=== PATIENT | female | born 1985 | race Caucasian/White ===

== ENCOUNTER → 2017-08-18 16:23 | Outpatient (CLI) | payer MEDICAID, SELFPAY | PROVIDERS: Family Provider Student in an Organized Health Care Education/Training Program; PCP Student in an Organized Health Care Education/Training Program; Visit Provider Physician Assistant Surgical | DX: J02.9 Acute pharyngitis, unspecified (principal) | CPT/HCPCS: 87081 ==

== ENCOUNTER → 2018-12-14 12:08 | Outpatient (CLI) | payer MEDICAID, SELFPAY ==
[2018-12-14 11:53] VITALS: BMI 17.6
[2018-12-14 13:55] LABS: HIV - WCH Non-Reactive (Nonreactive)
[2018-12-14 21:25] LABS: Chlamydia Trachomatis by PCR Negative (Negative); Neisserai gonorrhoeae by PCR Negative (Negative); Probe Check PASS; Sample Adequacy Control PASS; Specimen Processing Control PASS
[2018-12-16 12:07] LABS: HCV Quant. RNA PCR HCV Not Detected IU/mL (.)
[2018-12-16 12:53] LABS: HSV 1 IgG < 0.91 index (0.00-0.90); HSV 2 IgG < 0.91 index (0.00-0.90)
[2018-12-17 00:53] LABS: Rapid Plasmin Reagin (RPR) NONREACTIVE (NONREACTIVE)
== END ==
PROVIDERS: Family Provider Student in an Organized Health Care Education/Training Program; PCP Student in an Organized Health Care Education/Training Program; Referring Provider Nurse Practitioner Women's Health; Visit Provider Nurse Practitioner Women's Health
DX: Z11.3 Encounter for screening for infections with a predominantly sexual mode of transmission (principal)
CPT/HCPCS: 36415; 86592; 86695; 86696; 86703; 87491; 87522; 87591

== ENCOUNTER → 2019-01-05 14:23 | Outpatient (CLI) | payer MEDICAID, SELFPAY ==
[2019-01-04 10:47] VITALS: BMI 17.6
[2019-01-05 15:48] LABS: Color, Urine Yellow (Yellow); Glucose, Dipstick Normal (Normal); Ketone-Dipstick Negative (Negative); Leukocyte Esterase-Dipstick 500 /ul (Negative); Nitrite-Dipstick Positive (Negative); Occult Blood-Urine 25 /ul (Negative); Protein-Dipstick 30 mg/dl (Negative); Urine Bilirubin Dipstick Negative (Negative); Urine Clarity Cloudy (Clear); Urine Urobilinogen Normal (Normal)
[2019-01-05 16:44] LABS: Bacteria 4+ /hpf (None Seen); Mucous, Urine 4+ /hpf (<or=2+); Red Blood Cells-Urine 10-25 SEEN /hpf (0-5); Squamous Epithelial Cells - UA 5-10 SEEN /hpf (5-10); White Blood Cells 25-50 SEEN /hpf (0-5)
== END ==
PROVIDERS: Family Provider Student in an Organized Health Care Education/Training Program; PCP Student in an Organized Health Care Education/Training Program; Referring Provider Physician Assistant Surgical; Visit Provider Physician Assistant Surgical
DX: N30.01 Acute cystitis with hematuria (principal)
CPT/HCPCS: 81001; 87077; 87086; 87088; 87186

== ENCOUNTER → 2019-01-26 12:24 | Outpatient (CLI) | payer MEDICAID, SELFPAY ==
[2019-01-25 11:42] VITALS: BMI 17.6
--- NOTE | 2019-01-26 12:26 | US_ITS ---
STUDY: ULTRASOUND TRANSVAGINAL CLINICAL: Female, 33 years old. IUD TECHNIQUE: Transvaginal COMPARISON: None. FINDINGS: Normal uterine size measuring 8.3 x 4.4 x 2.9 cm in maximal craniocaudal dimension. There are no myometrial masses. An IUD is noted in place. Normal endometrial thickness measuring 3.7 mm. There are no endometrial masses, and there is no fluid in the endometrial cavity. Normal uterine cervix. Normal right ovary, measuring 2.2 x 2.7 x 1.5 cm. There is a 9 x 11 mm cyst. Nonvisualization of the left ovary. There is no free fluid in the pelvis. US/Transvaginal Non- IMPRESSION: IUD in place. Small right ovarian cyst. Electronically Signed: Alcides Matamoros DO at 21:53 EDT Tel [phone], Service support ,
--- NOTE | 2019-01-26 12:26 | US_ITS ---
STUDY: ULTRASOUND TRANSVAGINAL CLINICAL: Female, 33 years old. IUD TECHNIQUE: Transvaginal COMPARISON: None. FINDINGS: Normal uterine size measuring 8.3 x 4.4 x 2.9 cm in maximal craniocaudal dimension. There are no myometrial masses. An IUD is noted in place. Normal endometrial thickness measuring 3.7 mm. There are no endometrial masses, and there is no fluid in the endometrial cavity. Normal uterine cervix. Normal right ovary, measuring 2.2 x 2.7 x 1.5 cm. There is a 9 x 11 mm cyst. Nonvisualization of the left ovary. There is no free fluid in the pelvis. US/Pelvic (Non ) IMPRESSION: IUD in place. Small right ovarian cyst. Electronically Signed: Alcides Matamoros DO at 21:53 EDT Tel [phone], Service support ,
== END ==
PROVIDERS: Family Provider Student in an Organized Health Care Education/Training Program; PCP Student in an Organized Health Care Education/Training Program; Referring Provider Nurse Practitioner Women's Health; Visit Provider Nurse Practitioner Women's Health
DX: R10.2 Pelvic and perineal pain (principal); Z30.431 Encounter for routine checking of intrauterine contraceptive device
CPT/HCPCS: 76830; 76856; 93976

== ENCOUNTER → 2020-01-27 13:21 | Outpatient (CLI) | payer MEDICAID, SELFPAY ==
[2020-01-27 11:24] VITALS: BMI 21.0
[2020-01-31 07:44] LABS: Chlamydia By Nucleic Acid AMP Negative (Negative)
[2020-01-31 08:05] LABS: Gonococcus By Nucleic Acid AMP Negative (Negative)
== END ==
PROVIDERS: PCP Student in an Organized Health Care Education/Training Program; Referring Provider Obstetrics & Gynecology; Visit Provider Obstetrics & Gynecology
DX: N89.8 Other specified noninflammatory disorders of vagina (principal)
CPT/HCPCS: 87070; 87205; 87491; 87591

== ENCOUNTER → 2020-01-30 13:05 | Outpatient (CLI) | payer MEDICAID, SELFPAY ==
[2020-01-30 10:48] VITALS: BMI 17.6
[2020-01-30 13:34] LABS: Bacteria 0 SEEN /hpf (None Seen); Red Blood Cells-Urine 0 SEEN /hpf (0-5)
[2020-01-30 14:02] LABS: Color, Urine Yellow (Yellow); Glucose, Dipstick Normal (Normal); Ketone-Dipstick Negative (Negative); Leukocyte Esterase-Dipstick 25 /ul (Negative); Nitrite-Dipstick Negative (Negative); Occult Blood-Urine Negative /ul (Negative); Protein-Dipstick 15 mg/dl (Negative); Urine Bilirubin Dipstick Negative (Negative); Urine Clarity Clear (Clear); Urine Urobilinogen Normal (Normal)
[2020-01-30 14:07] LABS: Mucous, Urine 1+ /hpf (<or=2+); Squamous Epithelial Cells - UA 5-10 SEEN /hpf (5-10); White Blood Cells 0-5 SEEN /hpf (0-5)
== END ==
PROVIDERS: PCP Student in an Organized Health Care Education/Training Program; Referring Provider Physician Assistant; Visit Provider Physician Assistant
DX: R35.0 Frequency of micturition (principal)
CPT/HCPCS: 81001; 87086; 87088

== ENCOUNTER → 2020-03-06 12:33 | Outpatient (CLI) | payer MEDICAID, SELFPAY ==
[2020-01-30 10:48] VITALS: BMI 17.6
== END ==
PROVIDERS: PCP Student in an Organized Health Care Education/Training Program; Visit Provider Nurse Practitioner Women's Health
DX: N89.8 Other specified noninflammatory disorders of vagina (principal)
CPT/HCPCS: 87070; 87205

== ENCOUNTER 2022-06-26 17:51 | Emergency (ER) | payer MEDICAID, SELFPAY ==
[2022-06-26 17:52] VITALS: BP 111/63; PULSE 130; RESP 18; TEMP 36.6; O2SAT 99; BMI 23.4
--- NOTE | 2022-06-26 18:10 | EDS_ITS ---
HPI History of Present Illness Chief Complaint: Ear Problem Narrative Narrative: Patient is a 37-year-old female with no significant medical history presents to the emergency department with complaints of right ear pain, bleeding from the right ear. Patient was seen at urgent care today, diagnosed with right acute otitis media, placed on amoxicillin. The bleeding started after that. Patient also states to have some jaw pain, muffled hearing. She denies any fever or chills. Patient states that all 3 of her children were sick, she is the last 1 to become ill. [facility] Medical History (Updated 06/26/22 @ 18:18 by CHRISTOPHE Tsang) Acute otitis media, right Home Medications levonorgestrel 21 mcg/24 hours (8 yrs) 52 mg intrauterine device 1 insert intrauterine ONCE ##1 04/08/18 [Clinic Last Taken Unknown] levonorgestrel 21 mcg/24 hours (8 yrs) 52 mg intrauterine device (Mirena) 1 device intrauterine ONCE 01/27/20 [History Last Taken Unknown] amoxicillin 500 mg capsule 500 mg PO TID 10 days #30 caps 06/26/22 [Rx Last Taken Unknown] amoxicillin 875 mg-potassium clavulanate 125 mg tablet 1 tab PO BID #20 tabs 06/26/22 [Rx Last Taken Unknown] fluticasone propionate 50 mcg/actuation nasal spray,suspension (Flonase Allergy Relief) 1 spray intranasal BID #16 grams 06/26/22 [Rx Last Taken Unknown] Allergy/AdvReac Type Severity Reaction Status Date / Time triethanolamine Allergy Itching Verified 06/26/22 07:14 [From Cerumenex] Surgical History History of placement of ear tubes Hx of section Hx of tonsillectomy Social History Smoking Status: Never smoker alcohol intake: never substance use type: does not use what type of physical activity do you participate in: none seatbelt use: always do you feel safe at home: Yes ROS ROS ED ROS Narrative Constitutional: Negative for fever, chills, weight loss, weakness Eyes: Negative for vision loss, vision change, double vision ENT: Negative for any sore throat. Positive for ear pain, congestion, drainage from right ear Cardiovascular: Negative for any chest pain, tightness, palpitations Respiratory: Negative for any cough, sputum production, hemoptysis, dyspnea, dyspnea on exertion, orthopnea Gastrointestinal: Negative for any abdominal pain, nausea, vomiting, diarrhea, constipation, blood in stool, blood in vomit : Negative for any urinary frequency, dysuria, retention, blood in urine Muscle skeletal: Negative for any muscle joint pain, stiffness, myalgias, arthralgias, neck pain, back pain Neurological: Negative for any headache, syncope, numbness or tingling, dizziness Skin: Negative for any rashes, lumps, itching, abrasions, lacerations Psychiatric: Negative for any depression, anxiety, stress, suicidal ideation, homicidal ideation Hematologic: Negative for any easy bruising, excessive bruising, easy bleeding Allergies: Negative for any eczema, hives, rash EXAM Physical Exam Narrative Exam Narrative: Vital signs reviewed. HEET: Head normocephalic atraumatic, patient's left tympanic membrane is unremarkable, patient's right tympanic membrane does show perforation to the medial aspect, there is some serosanguineous with blood-tinged colored drainage. Muffled hearing.. Posterior pharynx is clear, moist mucous membranes. Nares clear bilaterally. Positive for periauricular lymphadenopathy. No pain along the mastoid. Neck: Supple with no lymphadenopathy or tenderness. No signs of meningismus, negative jolt sign. Cardiac: Regular rate and rhythm no murmurs gallops or rubs, equal peripheral pulses bilaterally. Respiratory: Lungs clear to auscultation bilaterally. No chest tenderness. Abdomen: Soft, nontender, nondistended. No abdominal bruit or pulsatile masses. No hepatosplenomegaly Extremities: No peripheral edema, no signs of gross trauma or deformity. Active full range of motion of all extremities. Neuro: Cranial nerves II through XII intact, no focal neurological deficits. Skin: Clean dry and intact with no rash, purpura, petechiae, vesicles or pustules. Backs/flank: No CVA tenderness, no midline spinal tenderness, no deformity. Psych: Normal mood and affect. No SI, HI or acute psychosis. Const Vital Signs: 06/26/22 17:52 Temperature 98 F Temperature Source Temporal Pulse Rate 130 H Respiratory Rate 18 Blood Pressure 111/63 Blood Pressure Mean 79 Pulse Ox 99 Oxygen Delivery Method Room Air Positive well nourished and well developed General Appearance ED: well developed [facility] Treatment and Re-Evaluation :: Patient appears generally well, patient appears nontoxic, vital signs are stable. Patient presents to the emergency department with complaints of drainage from the right ear, known right ear infection. Patient's physical examination is considered with a tympanic membrane perforation to the right eardrum, there is no evidence to suspect any mastoiditis, deep tissue infection. Patient is currently on amoxicillin however I would like to switch her to Augmentin secondary to severity of the infection. She will also follow-up with corporate learning consultant to ensure proper healing of the tympanic membrane. Patient agreed with the plan. She was given 1 [employer] here for pain. She will start her antibiotic tonight. Patient and mother who was at bedside was given return precautions. They were instructed return for any worsening pain, redness, worsening drainage. Patient stable for discharge Discharge Plan Triage Chief Complaint: Ear Problem ED Midlevel Provider: Elieser Ramos ED Provider: Elieser Zapata Dx/Rx/DC Orders Clinical Impression: Acute otitis media, right, Acute otitis media of right ear with perforated tympanic membrane Instructions: ED Ruptured Eardrum, Traumatic Prescriptions: New amoxicillin-pot clavulanate 875-125 mg tablet 1 tab PO BID Qty: 20 0RF fluticasone propionate [Flonase Allergy Relief] 50 mcg/actuation spray,suspension 1 spray intranasal BID Qty: 16 0RF Rx Instructions: administer into each nostril No Action levonorgestrel 20 mcg/24 hr (5 years) intrauterine device 1 insert Intrauterine ONCE Qty: 1 0RF levonorgestrel 20 mcg/24 hours (5 yrs) 52 mg intrauterine device 20 mcg/24 hours (5 yrs) 52 mg intrauterine device 1 device intrauterine ONCE Rx Instructions: as a single dose amoxicillin 500 mg capsule 500 mg PO TID 10 Days Qty: 30 0RF Primary Care Provider: Care Physician,No Primary Referrals: Amari Villafana MD [Med Staff - Active Staff] - Care Physician,No Primary [Primary Care Provider] - Activity Restrictions/Additional Instructions: You are going to stop taking the amoxicillin. He will start the Augmentin and take the Augmentin for 10 days. You need to follow-up with ear nose and throat. Take ibuprofen, Tylenol. Use the Flonase as needed. Disposition Disposition: Home, Self Care
[2022-06-26] MEDS: HYDROcodone Bitartrate/Apap 5/325 Tablet PO (18:16)
[2022-06-26 18:20] VITALS: BP 111/63; PULSE 130; RESP 18; TEMP 36.6; O2SAT 99
--- NOTE | 2022-06-26 19:52 | ED.RN ---
PT ASKED THIS RN, IF SHE TOOK A VICODIN AN HOUR AGO WHEN SHE COULD TAKE IBUPROFEN. THIS RN ASKED DR. GRAY, DR. GRAY SAID THE PT COULD TAKE IBUPROFEN NOW IF SHE WANTED. THIS RN TOLD THE PT. PT VERBALIZED UNDERSTANDING. PT AMBULATED AND WAS DISCHARGED WITH MEDS TO BED.
== END 2022-06-26 19:55 | disposition home or self-care (01) ==
PROVIDERS: Emergency Provider Emergency Medicine; Visit Provider Emergency Medicine
DX: H66.91 Otitis media, unspecified, right ear (principal); H72.91 Unspecified perforation of tympanic membrane, right ear
CPT/HCPCS: 99283

== ENCOUNTER → 2023-05-28 | Outpatient (CLI) | payer MEDICAID, SELFPAY ==
[2023-05-28 12:29] LABS: Absolute Lymphocyte Count 2.27 X10^3/uL (0.83-4.51); Absolute Neutrophil Count 2.9 X10^3/uL (2.0-7.7); Basophil# 0.02 X10^3/uL; Basophil% 0.4 % (0-1); Eosinophil# 0.06 X10^3/uL; Eosinophils% 1.1 % (0-5); Hematocrit 39.2 % (37-47); Lymphocyte # 2.27 X10^3/ul (0.83-4.51); Mean Corp Hgb Conc 33.2 g/dL (32-36); Mean Corpuscular Hgb 30.2 pg (27.0-32.0); Mean Corpuscular Volume 91.2 fL (81-99); Mean Platelet Vol. 10.1 fl (6.2-12.0); Monocyte# 0.46 X10^3/uL; Monocyte% 8.1 % (0-10); NRBC Flagged by Analyzer 0 % (0-5); Neutrophil # 2.85 X10^3/uL (2.7-7.7); Neutrophil % 50.2 % (47-70); Platelet Count 337 K/mm3 (150-450); RBC Distribution Width SD 39.9 fl (35.1-43.9); White Blood Count 5.7 K/mm3 (4.4-11.0)
[2023-05-28 12:43] LABS: AST(SGOT) 14 U/L (15-37); Alanine Aminotransfer ALT/SGPT 26 U/L (13-56); Albumin, Serum 3.8 g/dL (3.2-5.0); Alkaline Phosphatase 70 U/L (45-117); Anion Gap 3 (5-15); BUN 11 mg/dL (7-18); Calcium,Total 9.1 mg/dL (8.5-10.1); Chloride 109 mmol/L (98-107); Cholesterol 138 mg/dL (200); Creatinine, Serum 0.84 mg/dL (0.55-1.02); EST Glomerular Filtration Rate 81 mL/min (>60); Est Glom Filt Rate - Afr Amer 98 mL/min (>60); Globulin 3.8 g/dL (2.2-4.2); Glucose 106 mg/dL (74-106); High Density Lipoprotein 56 mg/dL; Potassium 3.7 mmol/L (3.5-5.1); Protein, Total 7.6 g/dL (6.4-8.2); Sodium Level 139 mmol/L (136-145); Triglycerides 37 mg/dL; Very Low Density Lipoprotein 7 mg/dL (5-40)
[2023-05-30 06:09] LABS: Chlamydia By Nucleic Acid AMP Negative (Negative); Gonococcus By Nucleic Acid AMP Negative (Negative)
[2023-06-03 13:07] LABS: HPV APTIMA, High Risk Negative (Negative)
== END | disposition home or self-care (01) ==
PROVIDERS: Nurse Practitioner Women's Health; PCP Nurse Practitioner Family; Referring Provider Nurse Practitioner Family; Visit Provider Nurse Practitioner Family
DX: Z00.01 Encounter for general adult medical examination with abnormal findings (principal); Z11.3 Encounter for screening for infections with a predominantly sexual mode of transmission
CPT/HCPCS: 36415; 80053; 80061; 85025; 87491; 87591; 87624; 88175; G0145

== ENCOUNTER → 2023-06-10 | Outpatient (CLI) | payer MEDICAID, SELFPAY ==
--- NOTE | 2023-06-10 12:19 | US_ITS ---
STUDY: ULTRASOUND OF THE FEMALE PELVIS - COMPLETE REASON FOR EXAM: Female, 38 years old. Right pelvic pain. LMP: Unknown. TECHNIQUE: Transabdominal and Transvaginal TECHNICAL QUALITY: Adequate. COMPARISON: Comparison is made with prior study dated January 26, 2019. FINDINGS: The uterus is anteverted and is in a midline position. The uterus measures 8.7 cm x 4.9 cm x 3.6 cm. There is a Nabothian cyst of the cervix. The endometrium measures 3 mm in thickness, and is hyperechoic. There is no demonstrated endometrial mass. There is no demonstrated myometrial mass. I.U.D. - The patient does have an I.U.D. The right ovary is visualized. The right ovary measures 3 cm x 2.1 cm x 1.4 cm. A dominant follicle is seen within it. There is no visualized right adnexal mass or complex lesion. There is normal arterial and normal venous vascularity. The left ovary is visualized. The left ovary measures 2.2 cm x 2.2 cm x 1.6 cm. There is no left ovarian cyst or ovarian mass. There is no visualized left adnexal mass or complex lesion. There is normal arterial and normal venous vascularity. There is no fluid in the cul-de-sac. The pre void volume of the bladder was 212 ml. US/Pelvic (Non ) IMPRESSION: A dominant follicle is seen in the right ovary. Electronically Signed: Domenico Lynn MD at 15:15 EST ,
== END | disposition home or self-care (01) ==
LOC: OPUS 12:19
PROVIDERS: PCP Nurse Practitioner Family; Referring Provider Nurse Practitioner Women's Health; Visit Provider Nurse Practitioner Women's Health
DX: R10.2 Pelvic and perineal pain (principal)
CPT/HCPCS: 76830; 76856